=== PATIENT | male | born 1970 | race Caucasian/White ===

== ENCOUNTER → 2017-01-20 | Outpatient (CLI) | payer BC ==
--- NOTE | 2017-01-21 08:44 | REP ---
MRI RIGHT SHOULDER: TECHNIQUE: Axial T2 fat sat, gradient echo, sagittal oblique T2 fat sat, coronal oblique T1, T2 fat sat. There is ill-defined high signal in the supraspinatus tendon diffusely on T2-weighted images compatible with tendinopathy/tendinitis. There appears to be a small focal partial undersurface tear of that tendon posteriorly at its distal insertion site. The other rotator cuff tendons appear intact. There are moderate hypertrophic degenerative changes of the acromioclavicular joint. The acromion is type 2. Biceps tendon is within the bicipital groove. There is moderate fluid surrounding the biceps tendon suggesting tenosynovitis. There is no Hill-Sachs deformity. Deltoid muscle demonstrates no abnormal signal. There does appear to be a SLAP tear extending into the biceps labral complex. Tiny subchondral cyst is seen in the superolateral humeral head. There is marrow edema at the acromioclavicular joint but otherwise no occult fracture is seen. There is no paralabral cyst. IMPRESSION: Supraspinatus tendinopathy/tendinitis with partial focal undersurface tear of the distal posterior tendon. There appears to be a SLAP tear extending into the biceps labral complex. Moderate hypertrophic degenerative changes acromioclavicular joint. Moderate fluid surrounding the biceps tendon suggesting tenosynovitis. Signed by Anthony Ceballos MD 01/21/2017 03:17 P
== END ==
LOC: M RAD 16:22
PROVIDERS: ATTEND Orthopaedic Surgery
DX: M75.41 Impingement syndrome of right shoulder (principal)